=== PATIENT | female | born 1985 | race Caucasian/White ===

== ENCOUNTER 2021-01-06 10:54 | Inpatient (IN) | payer OTHER ==
[~2021-01-06] VITALS: Ht 162.6 cm; Wt 91.6 kg
[2021-01-15] MEDS ORDERED: ROPIVACAINE 0.2% 100ML VIAL 100 ML EP SCH (14:45)
[2021-01-15] MEDS ORDERED: BUTORPHANOL TARTRATE 2 MG/ML IVP PRN (14:45)
[2021-01-15] MEDS ORDERED: NALOXONE HCL 0.4 MG/1 ML ML IV PRN (14:45)
[2021-01-15] MEDS ORDERED: EPHEDRINE SULFATE 50 MG/ML AMPULE IVP PRN (14:45)
[2021-01-15] MEDS ORDERED: LACTATED RINGERS 500 ML 500 ML IV PRN (14:45)
[2021-01-15 15:06] LABS: APPEARANCE,URINE Cloudy (CLEAR); BILIRUBIN,URINE Negative (NEGATIVE); COLOR,URINE Yellow (YELLOW); GLUCOSE, URINE (UA) 500 mg/dL (NEGATIVE); KETONES,URINE 15 mg/dL (NEGATIVE); LEUKOCYTE ESTERASE ,URINE Negative (NEGATIVE); NITRATE,URINE Negative (NEGATIVE); OCCULT BLOOD,URINE Negative (NEGATIVE); PH,URINE 5.5 (5.0-8.0); PROTEIN,URINE POS 1+ mg/dL (NEGATIVE)
[2021-01-15 15:17] LABS: HEMATOCRIT 38.5 % (36-48); MEAN CORPUSCULAR HEMOGLOBIN 31.3 pg (27.0-33.0); MEAN CORPUSCULAR VOLUME 91.9 fL (79-99); RED BLOOD CELL COUNT(AUTO) 4.19 MIL/uL (4.00-5.50); RED CELL DISTRIBUTION WIDTH 13.9 % (11.0-15.5); WHITE BLOOD COUNT (AUTO) 12.3 K/uL (4.8-10.8)
[2021-01-15 15:25] LABS: BACTERIA,URINE Rare /HPF (None Seen); RBC,URINE 0-1 /HPF (0-1); SQUAMOUS EPITHELIAL CELL,UR Moderate /HPF (0-2)
[2021-01-15 15:26] LABS: CALCIUM OXALATE CRYSTALS,UR Few /LPF (None Seen)
[2021-01-15] MEDS: LACTATED RINGERS 1000ML 1,000 ML IV PRN ×2 (20:34→23:34)
[2021-01-16] MEDS ORDERED: OXYTOCIN-LR 20 UNITS/1000 ML 1,000 ML IV ONE ×2 (02:57→02:59)
[2021-01-16] MEDS ORDERED: OXYTOCIN-LR 20 UNITS/1000 ML 1,000 ML IV SCH (03:00)
[2021-01-16] MEDS ORDERED: CALDOLOR 800MG+NS 250ML 250 ML IV ONE ×2 (11:02→11:13)
[2021-01-16] MEDS ORDERED: CEFAZOLIN SODIUM 1 GM VIAL ONE (11:02)
[2021-01-16] MEDS ORDERED: OXYTOCIN 10 USP UNITS/ML ONE (11:11)
[2021-01-16] MEDS ORDERED: MORPHINE PF 100MG/10ML AMP IV ONE (11:11)
[2021-01-16] MEDS ORDERED: CALDOLOR 800MG+NS 250ML 250 ML IV PRN (11:15)
[2021-01-16] MEDS ORDERED: CEFAZOLIN SODIUM 1 GM VIAL IVP PRN (11:15)
[2021-01-16] MEDS ORDERED: CEFAZOLIN SODIUM 1 GM VIAL IVP ONE (11:25)
[2021-01-16] MEDS ORDERED: ONDANSETRON 4MG INJ ONE (11:49)
[2021-01-16] MEDS ORDERED: 0.9%NACL 10ML VIAL IVP PRN (12:15)
[2021-01-16] MEDS ORDERED: ACETAMINOPHEN 500 MG TABLET PO PRN (12:15)
[2021-01-16] MEDS ORDERED: HYDROCODONE/ACETAMINOPHEN 5/325 MG TAB PO PRN (12:15)
[2021-01-16] MEDS ORDERED: DEXTROSE 5 %-0.45 % NACL 1,000 ML IV PRN (12:15)
[2021-01-16] MEDS ORDERED: OXYTOCIN-LR 20 UNITS/1000 ML 1,000 ML IV PRN (12:15)
[2021-01-16] MEDS ORDERED: LANOLIN 30GM OINTMENT TP PRN (12:15)
[2021-01-16] MEDS ORDERED: DIPHENHYDRAMINE HCL 25 MG CAPSULE PO PRN (12:15)
[2021-01-16] MEDS ORDERED: IBUPROFEN 800 MG TAB PO SCH (12:15)
[2021-01-16] MEDS ORDERED: BISACODYL 10 MG SUPP.RECT RC PRN (12:15)
[2021-01-16] MEDS: PROMETHAZINE HCL 25 MG/ML 1ML AMPULE IM PRN ×2 (13:40→18:19)
[2021-01-16 13:47] VITALS: BP 126/58
[2021-01-16] MEDS: MEPERIDINE-PF 75 MG/ML SYG IM PRN ×2 (13:49→18:20)
[2021-01-16 16:25] VITALS: BP 107/50
[2021-01-16] MEDS ORDERED: PNV1TABL17 PO (17:50)
[2021-01-16 19:42] VITALS: BP 110/50
[2021-01-16] MEDS ORDERED: CALDOLOR 800MG+NS 250ML 250 ML IV SCH (20:15)
[2021-01-16] MEDS: SIMETHICONE 80 MG TAB.CHEW PO PRN (20:36)
[2021-01-16] MEDS: DOCUSATE SODIUM 100 MG CAP PO SCH (20:36)
[2021-01-17 00:35] VITALS: BP 105/56
[2021-01-17 04:24] VITALS: BP 93/51
[2021-01-17] MEDS: ACETAMINOPHEN WITH CODEINE 1 TAB TAB PO PRN ×2 (04:37→09:41)
[2021-01-17 07:26] VITALS: BP 96/60
[2021-01-17 08:15] LABS: HEPATITIS Bs ANTIGEN SCREEN P Negative (Negative)
[2021-01-17] MEDS ORDERED: LIDOCAINE 5% TOPICAL PATCH TP SCH (09:00)
[2021-01-17] MEDS: SIMETHICONE 80 MG TAB.CHEW PO PRN (09:31)
[2021-01-17] MEDS: DOCUSATE SODIUM 100 MG CAP PO SCH (09:31)
[2021-01-17 11:38] VITALS: BP 97/54
== END 2021-01-17 15:25 | disposition home or self-care (01) | DRG 788 ==
LOC: PREOBSVTOIN 14:21 → LDH 01-15 14:26 → WSH 01-16 13:45
PROVIDERS: ADMIT Obstetrics & Gynecology; ATTEND Obstetrics & Gynecology
PROC: 10D00Z1 Extraction of Products of Conception, Low, Open Approach (ICD-10-PCS; principal; 2021-01-15)
DX: O42.02 Full-term premature rupture of membranes, onset of labor within 24 hours of rupture (principal); Z3A.40 40 weeks gestation of pregnancy; Z37.0 Single live birth; O76 Abnormality in fetal heart rate and rhythm complicating labor and delivery; O69.81X0 Labor and delivery complicated by cord around neck, without compression, not applicable or unspecified
CPT/HCPCS: 36415; 59510; 76805; 81001; 85027; 86592; 86850; 86900; 86901; 87340; A4344; G0378; J0690; J1741; J2175; J2274; J2405; J2550; J2590; J7120